=== PATIENT | female | born 1960 | race Caucasian/White ===

== ENCOUNTER 2020-10-02 15:12 | Outpatient (CLI) | payer BC, SELFPAY ==
--- NOTE | ~2020-10-02 | US_ITS ---
EXAMINATION: US venous doppler [facility] DATE: 10/02/2020 15:48 INDICATION: Left lower limb swelling TECHNIQUE: Simmons scale images without and with compression and Doppler images of the left lower extrem ity veins were obtained. COMPARISON: None FINDINGS: There is thrombosis in the left peroneal vein. The left common femoral vein, profunda femor al vein, femoral vein, popliteal vein, posterior tibial veins, and greater saphenous vein are patent. IMPRESSION: 1. Deep venous thrombosis of the left peroneal vein, otherwise patent left lower extremity veins. Reviewed, dictated and finalized at location [facility]. [employer] IMPRESSION: 1. Deep venous thrombosis of the left peroneal vein, otherwise patent left lowe r extremity veins.
== END 2020-10-02 15:13 | disposition home or self-care (01) ==
PROVIDERS: Visit Provider Orthopaedic Surgery
DX: I82.452 Acute embolism and thrombosis of left peroneal vein (principal)
CPT/HCPCS: 93971

== ENCOUNTER 2020-10-02 16:53 | Emergency (ER) | payer BC, SELFPAY ==
[2020-10-02 17:08] VITALS: BP 143/83; PULSE 61; RESP 20; TEMP 36.7; O2SAT 100
--- NOTE | 2020-10-02 19:37 | ED.LOWEXIN ---
HPI - Extremity Injury (Lower) General Chief Complaint: Extremity Injury, Lower Stated Complaint: l leg dvt Time Seen by Provider: 10/02/20 19:04 Source: patient Mode of arrival: ambulatory Limitations: no limitations History of Present Illness HPI Narrative: Patient is a 59-year-old female who presents reporting a DVT in her left lower extremity. Patient was sent from imaging to the ED for DVT. Patient reports having surgery on left knee 08/20/2020 and reports swelling in the leg since. She was sent for venous Doppler today which showed DVT. Patient denies chest pain or shortness of breath, she denies all complaints. She reports mild pain at this time. Related Data Home Medications Medication Instructions Recorded Confirmed levothyroxine 10/02/20 Allergies Allergy/AdvReac Type Severity Reaction Status Date / Time No Known Allergies Allergy Verified 10/02/20 19:04 Review of Systems Review of Systems: Narrative: CONSTITUTIONAL: Denies fever, chills, or sweats. EYES: Denies visual changes, redness, or discharge. ENT: Denies rhinorrhea, congestion, sore throat, or otalgia. CARDIOVASCULAR: Denies chest pain, palpitations, or edema. RESPIRATORY: Denies cough or dyspnea. GASTROINTESTINAL: Denies abdominal pain, nausea, vomiting, or diarrhea. GENITOURINARY: Denies dysuria or hematuria. SKIN: Denies rash or itching. MUSCULOSKELETAL: Reports swelling in the left lower extremity NEUROLOGIC: Denies headache, numbness, dizziness, or weakness. PSYCHIATRIC: Denies anxiety or depression. [facility] Past Medical History Medical History (Updated 10/02/20 @ 19:43 by KARLEY Charlton) Hypothyroidism Surgical History Surgical History (Updated 10/02/20 @ 19:39 by KARLEY Charlton) H/O arthroscopic knee surgery Family History Family History (Updated 10/02/20 @ 19:41 by KARLEY Charlton) Other No significant family history Social History Social History (Updated 10/02/20 @ 19:41 by KARLEY Charlton) Smoking status: Never smoker Alcohol intake: never Substance use: never Living arrangements: with family Comments At the time of signature, I have reviewed and agree with nursing past medical, surgical, social, and family history unless otherwise noted. Please see nursing chart for further information. There is no relevant family history pertinent to the presenting complaint. Exam Narrative: Exam Narrative: GENERAL: Well-appearing, well-nourished, and in no acute distress. HEAD: Normocephalic, atraumatic. EYES: No redness or drainage. ENT: Mucous membranes pink and moist. CHEST: No respiratory distress. HEART: Regular rate and rhythm. No murmur appreciated. Normal peripheral pulses. EXTREMITIES: Normal range of motion. Edema noted to left lower extremity, distal sensation intact, positive pedal pulse SKIN: Warm, dry, no rash. NEURO: No focal deficits. Alert and oriented x3. Gait steady. PSYCH: Normal affect. No signs of depression or anxiety. Course Vital Signs Vital signs: Vital Signs Temperature 36.7 C 10/02/20 17:08 Pulse Rate 61 10/02/20 17:08 Respiratory Rate 20 10/02/20 17:08 Blood Pressure 143/83 H 10/02/20 17:08 Pulse Oximetry 100 10/02/20 17:08 Temperature 36.7 C 10/02/20 17:08 Pulse Rate 71 10/02/20 20:59 Respiratory Rate 16 10/02/20 20:59 Blood Pressure 146/96 H 10/02/20 20:59 Pulse Oximetry 100 10/02/20 20:59 Reviewed-patient is informed that they may have pre-hypertension or hypertension based on a blood pressure reading. I recommend the patient call the primary care provider listed on their discharge instructions or a physician of their choice this week to arrange follow-up for further evaluation of possible pre-hypertension or hypertension. MDM - Extremity Injury (Lower) MDM Narrative Medical decision making narrative: Patient has a DVT of her left peroneal vein as reported by imaging. Discussed patient with maikol Luu
[2020-10-02 19:47] LABS: Basophils Percent Auto 0.7 % (0.2-1.2); Eosinophils Absolute Auto 0.1 K/mm3 (0-0.3); Hematocrit 42.4 % (37.0-47.0); Immature Granulocyte Absolute 0.01 K/mm3 (0.00-0.031); Immature Granulocyte Percent A 0.2 % (0-0.5); Lymphocytes Absolute Auto 1.58 K/mm3 (0.9-3.2); Lymphocytes Percent Auto 34.3 % (18.3-44.2); Mean Corpuscular Hemoglobin 29.7 pg (26-34); Mean Platelet Volume 11.6 fl (7.4-10.4); Monocytes Absolute Auto 0.3 K/mm3 (0.1-0.6); Monocytes Percent Auto 6.3 % (2.6-8.5); Neutrophils Absolute Auto 2.6 K/mm3 (1.3-6.7); Neutrophils Percent Auto 56.5 % (45.5-73.1); Platelet Count Result 205 k/mm3 (150-375); Red Blood Count 4.71 M/mm3 (4.2-5.4); Red Cell Distribution Width 13.2 % (11.5-14.5); White Blood Count 4.6 K/mm3 (4.5-10.0)
[2020-10-02 19:57] LABS: INR 0.9; Prothrombin Time 12.9 Seconds (11.1-14.7)
[2020-10-02 19:59] LABS: Alanine Aminotransferase 22 U/L (4-35); Albumin Level 4.2 g/dL (3.5-5.1); Alkaline Phosphatase 60 U/L (38-126); Anion Gap 2 mmol/L (8-16); Aspartate Amino Transferase 30 U/L (14-36); Bilirubin,Total 0.5 mg/dL (0.2-1.3); Blood Urea Nitrogen 16 mg/dL (7-17); Calcium 9.5 mg/dL (8.4-10.2); Carbon Dioxide 32 mmol/L (22-30); Chloride 104 mmol/L (98-107); Estimated CRCL calculation 61 ml/min; Estimated Glomerular Filt Rate > 60; Glucose 115 mg/dL (65-105); Sodium 138 mmol/L (137-145)
[2020-10-02] MEDS: APIXABAN 5 MG TABLET 10 MG PO (20:58)
[2020-10-02 20:59] VITALS: BP 146/96; PULSE 71; RESP 16; O2SAT 100
== END 2020-10-02 21:00 | disposition home or self-care (01) ==
PROVIDERS: Emergency Provider Nurse Practitioner; PCP Internal Medicine
DX: I82.452 Acute embolism and thrombosis of left peroneal vein (principal); E03.9 Hypothyroidism, unspecified
CPT/HCPCS: 36415; 80053; 85025; 85610; 85730; 99283; A9270